=== PATIENT | male | born 1985 | race Caucasian/White ===

== ENCOUNTER 2018-07-04 19:07 | Emergency (ER) | payer OTHER ==
[2018-07-04] MEDS: DEXTROSE 50% 50 ML SYRINGE ZFS (21:28)
[2018-07-04] MEDS: HYDROCODONE/APAP (5/325) TAB PO (22:07)
== END 2018-07-04 22:44 | disposition home or self-care (01) ==
LOC: FTE 19:07
DX: N48.89 Other specified disorders of penis (principal); E11.9 Type 2 diabetes mellitus without complications; N47.2 Paraphimosis; Z87.891 Personal history of nicotine dependence
CPT/HCPCS: 99283; Z7502